=== PATIENT | male | born 1980 | race Hispanic/Latino ===

== ENCOUNTER 2023-07-21 07:52 | Emergency (ER) | payer OTHER ==
[~2023-07-21] VITALS: Ht 160 cm; Wt 56.7 kg
[2023-07-21 07:54] VITALS: BP 111/74; PULSE 64; RESP 16
[2023-07-21] MEDS ORDERED: CIPOTIC OT (08:13)
== END 2023-07-21 09:20 | disposition home or self-care (01) ==
LOC: EDH 07:52
DX: H60.91 Unspecified otitis externa, right ear (principal)